=== PATIENT | female | born 1995 | race Caucasian/White ===

== ENCOUNTER 2017-03-14 16:35 | Emergency (ER) | payer OTHER ==
[~2017-03-14] VITALS: Ht 157.5 cm; Wt 61.2 kg
[~2017-03-14 16:35] MED LIST: DIFLUCAN PO; DOLOGEN CAPLET1 TAB PO; LEVSIN/SL0.125 MG SL; PONSTEL250 MG; TORADOL10 MG; TRAMADOL HCL50 MG PO; ZOFRAN4 MG PO
[2017-03-14] MEDS ORDERED: IBUPROFEN800 MG PO (18:30)
== END 2017-03-14 18:38 | disposition home or self-care (01) ==
LOC: ER 16:35
DX: N64.4 Mastodynia (principal)

== ENCOUNTER 2017-10-05 13:47 | Emergency (ER) | payer OTHER ==
[~2017-10-05] VITALS: Ht 157.5 cm; Wt 68.0 kg
[~2017-10-05 13:47] MED LIST changes: +IBUPROFEN800 MG PO
[2017-10-05] MEDS ORDERED: BACTRIM DS TAB1 EACH PO (18:13)
== END 2017-10-05 20:29 | disposition home or self-care (01) ==
LOC: ER 13:47
DX: N61.0 Mastitis without abscess (principal)

== ENCOUNTER 2018-04-24 15:09 | Emergency (ER) | payer OTHER ==
[~2018-04-24] VITALS: Ht 157.5 cm; Wt 70.8 kg
[~2018-04-24 15:09] MED LIST changes: +BACTRIM DS TAB1 EACH PO
== END 2018-04-24 21:51 | disposition home or self-care (01) ==
LOC: ER 15:09
DX: M94.0 Chondrocostal junction syndrome [Tietze] (principal); K29.70 Gastritis, unspecified, without bleeding; R11.11 Vomiting without nausea

== ENCOUNTER 2018-06-19 17:39 | Emergency (ER) | payer OTHER ==
[~2018-06-19] VITALS: Ht 157.5 cm; Wt 64.4 kg
== END 2018-06-19 20:38 | disposition home or self-care (01) ==
LOC: ER 17:39
DX: J11.1 Influenza due to unidentified influenza virus with other respiratory manifestations (principal)

== ENCOUNTER 2018-07-15 14:15 | Outpatient (CLI) | payer OTHER | END 2018-07-15 15:20 | disposition home or self-care (01) | LOC: LAB 14:15 | DX: D68.8 Other specified coagulation defects (principal); D66 Hereditary factor VIII deficiency; D67 Hereditary factor IX deficiency; D65 Disseminated intravascular coagulation [defibrination syndrome] ==

== ENCOUNTER 2018-08-03 13:15 | Emergency (ER) | payer OTHER ==
[~2018-08-03] VITALS: Ht 157.5 cm; Wt 63.5 kg
== END 2018-08-03 22:56 | disposition home or self-care (01) ==
LOC: ER 13:15
DX: K29.70 Gastritis, unspecified, without bleeding (principal); R10.13 Epigastric pain

== ENCOUNTER 2018-08-08 00:33 | Emergency (ER) | payer OTHER ==
[~2018-08-08] VITALS: Ht 157.5 cm; Wt 63.5 kg
[2018-08-08] MEDS ORDERED: KETO10TA2 PO (05:39)
[2018-08-08] MEDS ORDERED: PEPCID AC20 MG PO (05:39)
== END 2018-08-08 05:46 | disposition home or self-care (01) ==
LOC: ER 00:33
DX: R10.12 Left upper quadrant pain (principal)

== ENCOUNTER → 2018-10-20 | Emergency (ER) | payer OTHER ==
[~2018-10-20] VITALS: Ht 157.5 cm; Wt 65.8 kg
[~2018-10-20] MED LIST changes: +KETO10TA2 PO; +PEPCID AC20 MG PO
== END | disposition home or self-care (01) ==
LOC: ER 19:33
DX: N83.292 Other ovarian cyst, left side (principal); R10.84 Generalized abdominal pain; R11.11 Vomiting without nausea

== ENCOUNTER 2022-01-16 08:40 | Emergency (ER) | payer OTHER ==
[~2022-01-16] VITALS: Ht 157.5 cm; Wt 74.8 kg
[2022-01-16] MEDS ORDERED: LEXAPRO5 MG PO (08:59)
== END 2022-01-16 11:16 | disposition home or self-care (01) ==
LOC: ER 08:40
DX: G43.909 Migraine, unspecified, not intractable, without status migrainosus (principal)

== ENCOUNTER 2022-02-18 17:50 | Emergency (ER) | payer OTHER ==
[~2022-02-18] VITALS: Ht 157.5 cm; Wt 77.1 kg
[~2022-02-18 17:50] MED LIST changes: +LEXAPRO5 MG PO
[2022-02-18] MEDS ORDERED: INDOMETHACIN50 MG PO (18:10)
== END 2022-02-18 22:16 | disposition home or self-care (01) ==
LOC: ER 17:50
DX: G44.209 Tension-type headache, unspecified, not intractable (principal)

== ENCOUNTER 2024-03-17 19:39 | Inpatient (IN) | payer OTHER ==
[~2024-03-17] VITALS: Ht 157.5 cm; Wt 76.2 kg
[~2024-03-17 19:39] MED LIST changes: +INDOMETHACIN50 MG PO
--- NOTE | 2024-03-17 20:16 | NUR ---
PACIENTE TRAIDO POR BAILON AMIGA QUE REFIERE QUE LLEVA TODA LA TARDE CON DOLOR DE [place] Y QUE TIENE EL LADO DERECHO DE LA ACOSTA CAIDA
[2024-03-17] MEDS ORDERED: 0.9 % SODIUM CHLORIDE 1,000 ML IV SCH ×2 (20:45→23:45)
[2024-03-17] MEDS ORDERED: SUMATRIPTAN SUCCINATE 6 MG/0.5 ML VIAL SUBCUTANEO ONE ×2 (20:45→20:50)
[2024-03-17] MEDS ORDERED: METHYLPREDNISOLONE SOD SUCC 125 MG VIAL IV ONE (20:45)
[2024-03-17] MEDS ORDERED: ONDANSETRON HCL 2 MG/ML VIAL IV ONE (20:45)
[2024-03-17] MEDS ORDERED: ONDANSETRON HCL 2 MG/ML VIAL ONE (20:50)
[2024-03-17] MEDS ORDERED: METHYLPREDNISOLONE SOD SUCC 125 MG VIAL ONE (20:50)
--- NOTE | 2024-03-17 20:57 | NUR ---
RN BERGERON EDUCA A PTE SOBRE TX A RECIBIR EN EL AREA Y SOBRE USO Y EFECTO DE MEDICACION POR ORDEN MEDICA. SE CANALIZA PTE Y SE COLOCAN MEDICAMENTOS. SE REALIZAN MUESTARS BAJO MEDIDAS ASEPTICAS Y SE RAMON LA MISMA EN ESPERA DE ESTUDIO PENDIENTE Y RESULTADOS.
[2024-03-17 21:08] LABS: HEMATOCRIT 39.8 % (36.0-45.00); HEMOGLOBIN 13.2 g/dL (12.0-15.00); MEAN CELL VOLUME 87.1 fL (80.00-100.00); MEAN CORPUSCULAR HEMOGLOBIN 28.8 pg (27.00-32.0); MEAN CORPUSCULAR HGB CONC 33.1 g/dl (32.0-36.0); PLATELET COUNT 215 K/uL (150-450); RED BLOOD COUNT 4.57 M/uL (4.00-6.00); RED CELL DISTRIBUTION WIDTH 14.9 % (11.5-14.5)
[2024-03-17 21:36] LABS: ALBUMIN 3.7 gm/dL (3.4-5.0); BILIRUBIN TOTAL 0.19 mg/dL (0.3-1.2); CALCIUM 8.9 mg/dL (8.5-10.1); CREATININE SERUM 0.97 mg/dL (0.55-1.02); GFR 67.89; GLOBULINA 4.1 G/DL (2.4-3.5); POTASSIUM 3.71 mEq/L (3.5-5.1); TOTAL PROTEIN 7.8 gm/dL (6.4-8.2)
[2024-03-17] MEDS ORDERED: DIPHENHYDRAMINE HCL 50 MG/ML VIAL 1ML IV ONE (23:30)
[2024-03-17] MEDS ORDERED: KETOROLAC TROMETHAMINE 30 MG VIAL IV ONE (23:30)
[2024-03-17] MEDS ORDERED: ACETAMINOPHEN 500 MG GEL..CAP PO PRN (23:45)
[2024-03-17] MEDS ORDERED: ONDANSETRON HCL 4 MG in 0.9 % SODIUM CHLORIDE 50 ML IV PRN (23:45)
[2024-03-17] MEDS ORDERED: MEPERIDINE HCL/PF 25 MG/ML VIAL IM PRN (23:45)
[2024-03-17] MEDS ORDERED: MEPERIDINE HCL/PF 25 MG/ML VIAL IM ONE (23:45)
[2024-03-17] MEDS ORDERED: PROMETHAZINE HCL 25 MG/ML AMPUL IM ONE (23:45)
[2024-03-17] MEDS ORDERED: DEXAMETHASONE SODIUM PHOSPHATE 4 MG/ML VIAL IV ONE (23:45)
[2024-03-17] MEDS ORDERED: DIPHENHYDRAMINE HCL 50 MG/ML VIAL 1ML ONE (23:57)
[2024-03-17] MEDS ORDERED: ASPIRIN 81 MG TAB.CHEW PO SCH (23:57)
[2024-03-17] MEDS ORDERED: ATORVASTATIN CALCIUM 40 MG TABLET PO SCH (23:57)
[2024-03-17] MEDS ORDERED: KETOROLAC TROMETHAMINE 30 MG VIAL ONE (23:57)
[2024-03-18] MEDS ORDERED: FAMOTIDINE/PF 20 MG in 0.9 % SODIUM CHLORIDE 8 ML IV PUSH SCH (09:00)
[2024-03-18 09:05] VITALS: BP 109/62
[2024-03-18] MEDS ORDERED: METHYLPREDNISOLONE SOD SUCC 40 MG VIAL IV NR (09:45)
[2024-03-18] MEDS ORDERED: DIPHENHYDRAMINE HCL 50 MG/ML VIAL 1ML IV NR (09:45)
[2024-03-18 17:34] VITALS: BP 122/51; O2SAT 97
[2024-03-19 02:40] VITALS: BP 102/57
[2024-03-19 07:48] LABS: INR 1.05; PARTIAL THROMBOPLASTIN TIME 26.3 SECONDS (22.0-34.0); PROTHROMBIN TIME 11.4 SECONDS (9.0-11.5)
[2024-03-19 08:00] LABS: URINE APPEARANCE Clear; URINE BILIRRUBIN Negative (NEGATIVE); URINE BLOOD Negative; URINE COLOR Yellow; URINE GLUCOSE Negative (NEGATIVE); URINE KETONE Trace (NEGATIVE); URINE LEUKOCYTE Negative; URINE NITRATE Negative; URINE PROTEIN Trace (NEGATIVE); URINE UROBILINOGEN 0.2 E.U./dl
[2024-03-19 08:04] LABS: URINE BACTERIA 108.9 uL (0.0-1933); URINE EPITHELIAL CELLS 4.8 uL (0.0-38.8); URINE RBC 4.8 uL (0.0-20.8); URINE WBC 4.1 uL (0.0-23.2)
[2024-03-19 08:35] LABS: URINE CAST 0.14 uL (0.0-1.40)
[2024-03-19 09:06] VITALS: BP 90/50
== END 2024-03-19 13:10 | disposition home or self-care (01) | DRG 103 ==
LOC: ER 19:41 → MEDI 23:57
PROVIDERS: General Practice; ADMIT Internal Medicine; ATTEND Internal Medicine
PROC: BW28ZZZ Computerized Tomography (CT Scan) of Head (ICD-10-PCS; principal; 2024-03-17)
PROC: B24BZZZ Ultrasonography of Heart with Aorta (ICD-10-PCS; 2024-03-17)
PROC: B345ZZZ Ultrasonography of Bilateral Common Carotid Arteries (ICD-10-PCS; 2024-03-17)
PROC: BW38Y0Z Magnetic Resonance Imaging (MRI) of Head using Other Contrast, Unenhanced and Enhanced (ICD-10-PCS; 2024-03-18)
DX: G43.519 Persistent migraine aura without cerebral infarction, intractable, without status migrainosus (principal); F44.4 Conversion disorder with motor symptom or deficit; G51.0 Bell's palsy
CPT/HCPCS: 70545